=== PATIENT | female | born 1960 | race Caucasian/White ===

== ENCOUNTER → 2018-06-04 | Outpatient (CLI) | payer OTHER | LOC: HYPER 06:48 | DX: S21.002A Unspecified open wound of left breast, initial encounter (principal); S21.001A Unspecified open wound of right breast, initial encounter; G89.29 Other chronic pain; G90.09 Other idiopathic peripheral autonomic neuropathy; G47.30 Sleep apnea, unspecified; J45.909 Unspecified asthma, uncomplicated; F33.8 Other recurrent depressive disorders; F41.9 Anxiety disorder, unspecified; X58.XXXA Exposure to other specified factors, initial encounter; Y93.89 Activity, other specified; Y92.89 Other specified places as the place of occurrence of the external cause; Y99.8 Other external cause status ==